=== PATIENT | female | born 1990 | race Caucasian/White ===

== ENCOUNTER 2016-09-28 15:30 | Day surgery (SDC) | payer BC, MEDICAID ==
[~2016-09-28] VITALS: Ht 157.5 cm; Wt 56.3 kg
[2016-09-28] VITALS (20 sets, daily range): BP systolic 89–108; BP diastolic 54–66; PULSE 62–88; RESP 17–18; Ht 157.5 cm; Wt 56.3 kg
[~2016-09-28 15:30] MED LIST: ACET500C5 PO; CALC600T11 PO; CEPH-443 PO; FERR-31 PO; IBUP-1542 PO; PRENAT PO; SEVOFLURANE 15 MIN ONE
[2016-09-28] MEDS ORDERED: LACTATED RINGER'S 1,000 ML IV SCH (16:00)
[2016-09-28 16:26] LABS: BASOPHILS % 0.3 % (0.0-2.0); EOSINOPHILS % 0.3 % (0.0-7.0); LYMPHOCYTES # 1.6 10^3/ul (0.8-2.9); LYMPHOCYTES % 26.1 % (15.0-51.0); MEAN CORPUSCULAR HEMOGLOBIN 31.9 pg (29.0-33.0); MEAN CORPUSCULAR HGB CONC 35.1 g/dl (32.0-37.0); MEAN CORPUSCULAR VOLUME 90.9 fl (82.0-101.0); MEAN PLATELET VOLUME 12.2 fl (7.4-10.4); MONOCYTE # 0.4 10^3/ul (0.3-0.9); MONOCYTES % 6.3 % (0.0-11.0); NEUTROPHILS % 66.7 % (39.0-77.0); PLATELET COUNT 148 10^3/UL (140-415); RED BLOOD COUNT 4.07 10^6/ul (4.20-5.40)
[2016-09-28] MEDS ORDERED: LIDOCAINE 2% (SDV) 5 ML INJ ONE (16:44)
[2016-09-28] MEDS ORDERED: MIDAZOLAM 1 MG/ML 2 ML INJ ONE (16:44)
[2016-09-28] MEDS ORDERED: PROPOFOL 20 ML ONE ×2 (16:44→17:16)
--- NOTE | 2016-09-28 16:54 | HP ---
Date/Time of Note Date/Time of Note DATE: 09/28/16 TIME: 16:51 Assessment/Plan VTE Prophylaxis VTE Prophylaxis Intervention: ambulation Assessment/Plan Assessment/Plan missed Ab: decreasing B HCG and NO pole x few weeks HPI/ROS Admit Date/Time Admit Date/Time 09/28/2016 Hx of Present Illness 26 y/o female with missed ROS vaginal spotting X 3 days denies paage of tissue Constitutional: improved, no complaints Eyes: no complaints ENT: no complaints Respiratory: no complaints Cardiovascular: no complaints Gastrointestinal: no complaints Genitourinary: bleeding, no complaints Musculoskeletal: no complaints Skin: no complaints Neurologic: no complaints Endocrine: no complaints Lymphatic: no complaints Psychological: nl mood/affect, no complaints Immunologic: no complaints PMH/Family/Social Past Medical History Medical History: no pertinent history Past Surgical History Past Surgical Hx: no surgical history Family History Significant Family History: no pertinent family hx Social History Alcohol Use: none Smoking Status: Never smoker Drug Use: none Exam/Review of Systems Exam Exam not in acute distress Constitutional: alert, oriented, well developed Psych: nl mood/affect, no complaints Head: atraumatic, normocephalic Eyes: EOMI, PERRL, nl conjunctiva, nl lids, nl sclera ENMT: nl external ears & nose, nl lips & teeth, nl nasal mucosa & septum Neck: non-tender, supple Respiratory: clear to auscultation, normal air movement Cardiovascular: nl pulses, regular rate and rhythm Gastrointestinal: nl liver, spleen, non-tender, soft Genitourinary - Female: other (6 weeks size ) Musculoskeletal: nl extremities to inspection Extremities: normal pulses 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
[2016-09-28] MEDS ORDERED: OXYTOCIN 10 UNIT INJ ONE (17:26)
[2016-09-28] MEDS ORDERED: FENTAnyl 50 MCG/ML VIAL ONE (17:30)
[2016-09-28] MEDS ORDERED: PHENYLephrine (100 MCG/ML) 5ML SYG ONE (17:32)
[2016-09-28] MEDS ORDERED: DEXAMETHASONE 4 MG/ML 1 ML INJ ONE (17:37)
[2016-09-28] MEDS ORDERED: METOCLOPRAMIDE 10 MG INJ ONE (17:37)
[2016-09-28] MEDS ORDERED: ONDANSETRON 4 MG INJ ONE (17:37)
--- NOTE | 2016-09-28 17:37 | OPR ---
Operative Report Planned Procedure Procedure date Sep 28, 2016 Procedure(s) dilatation of cervix and suction corsetage of the uterus Performed by: ROYAL BARKSDALE MD Anesthesiologist: SANTIAGO VAZQUEZ MD Pre-procedure diagnosis missed without fetus Anesthesia Type: general Procedure Description The patient was placed on the OR table in supine position. General anesthesia was induced. Patient was taken to lithotomy position. Perineal and vaginal area were prepped, draped for usual D and C procedure. Under satisfactory anesthesia, a weighted speculum was inserted into vagina. Anterior lip of the cervix was secured with an Allis clamp. Cervix was brought up to operative field, was progressively dilated to #8 Hegar. A #8 Vacurette was inserted into the uterine cavity. Uterine cavity was suctioned. Product of conception was removed, sent for pathology. The procedure was complemented by performing a gentle sharp curettage in uterine cavity. After making sure no product of conception is left inside the uterine cavity all of the instruments were removed from vaginal cavity. Patient was carefully returned to supine position and was transferred to postanesthesia recovery room in good condition. Post-Procedure Post-procedure diagnosis S/P D&C Findings: product of conception Specimen removed: Yes Specimen description product of conception Complications: None Pt Condition post procedure: stable Disposition: PACU Physician Certification I, the undersigned physician, hereby certify that I have discussed the procedure described in this consent form with this patient (or the patient's legal insurance claims representative), including: * The risk and benefits of the procedure; * Any adverse reactions that may reasonably be expected to occur; * Any alternative efficacious methods of treatment which may be medically viable ; * The potential problems that may occur during recuperation; * Potential for blood transfusion and associated risks/benefits; and * Any research or economic interest I may have regarding this treatment. I further certify that the patient/legally responsible person was encouraged to ask question and that all questions were answered. ROYAL BARKSDALE MD Sep 28, 2016 17:37
[2016-09-28] MEDS ORDERED: OXYCODONE/ACETAMINOPHEN (5/325) TAB PO PRN (18:00)
[2016-09-28] MEDS ORDERED: FENTAnyl 50 MCG/ML VIAL IV PRN (18:00)
[2016-09-28] MEDS ORDERED: ONDANSETRON 4 MG INJ IV PRN (18:00)
[2016-09-28] MEDS ORDERED: DIPHENHYDRAMINE 50 MG INJ IV PRN (18:00)
[2016-09-28] MEDS ORDERED: DOXYCYCLINE 100 MG TAB PO ONE (18:00)
[2016-09-28] MEDS ORDERED: HYDROmorphONE (0.2 MG/ML) 10ML SYG IV PRN (18:00)
== END 2016-09-28 19:45 | disposition home or self-care (01) ==
LOC: SDS 15:30
PROVIDERS: ATTEND Obstetrics & Gynecology
DX: O02.1 Missed abortion (principal)
CPT/HCPCS: 59820; 84703; 85025; 86900; 86901; 88305; J1100; J2250; J2370; J2405; J2590; J2765; J3010; Z7512; Z7610

== ENCOUNTER 2018-04-25 06:42 | Emergency (ER) | payer BC ==
[~2018-04-25] VITALS: Ht 157.5 cm; Wt 66.7 kg
[2018-04-25 06:45] VITALS: Ht 157.5 cm; Wt 66.7 kg
[2018-04-25] MEDS ORDERED: DOCU-144 PO (08:25)
[2018-04-25] MEDS ORDERED: NAPR-985 PO (08:25)
[2018-04-25] MEDS ORDERED: GLYCERIN (ADULT) SUPP PR ONE (08:30)
[2018-04-25 08:36] VITALS: PULSE 76; RESP 16
--- NOTE | 2018-04-25 12:20 | ERD ---
ER Documentation Chief Complaint Chief Complaint pt bib self with c/o abd pain starting this am, with back denies, bloated HPI 28-year-old female presenting with abdominal pain and bloating times 1 day. She states she woke up this morning and she felt her stomach was very bloated. She last had a last bowel movement yesterday. No vomiting. Has not taken medications for symptoms. Describes a cramping type pain to her abdomen. She never had this before. Normal urination. LNMP mid March. I denies medical problems. NKDA. Surgical history denies. Social history denies ROS All systems reviewed and are negative except as per history of present illness. Medications Home Meds Active Scripts Docusate Sodium* (Colace*) 100 Mg Capsule, 100 MG PO TID, #30 CAP Prov:JOZEF HAERN PA-C 04/25/18 Naproxen* (Naprosyn*) 500 Mg Tablet, 500 MG PO BID PRN for PAIN AND/OR INFLAMMATION, #30 TAB Prov:JOZEF HEARN PA-C 04/25/18 Allergies Allergies: Coded Allergies: No Known Allergy (Verified , 09/28/16) PMhx/Soc History of Surgery: No Anesthesia Reaction: No Hx Neurological Disorder: No Hx Respiratory Disorders: No Hx Cardiac Disorders: No Hx Psychiatric Problems: No Hx Miscellaneous Medical Probl: No Hx Alcohol Use: No Hx Substance Use: No Hx Tobacco Use: No Smoking Status: Never smoker FmHx Family History: No diabetes, No coronary disease, No other Physical Exam Vitals Vital Signs Date Temp Pulse Resp B/P (MAP) Pulse Ox O2 O2 Flow FiO2 Time Delivery Rate 04/25/18 76 16 96 Room Air 08:36 04/25/18 97.9 71 16 120/58 100 06:45 (78) Physical Exam GENERAL: The patient is well-appearing, well-nourished, in no acute distress CHEST: Clear to auscultation bilaterally. There are no rales, wheezes or rhonchi. HEART: Regular rate and rhythm. No murmurs, clicks, rubs or gallops. ABDOMEN:Soft, nontender and nondistended. Good bowel sounds. No rebound or guarding. No gross peritonitis. No gross organomegaly or masses. BACK: No CVA tenderness Result Diagram: 04/25/18 0710 04/25/18 0710 Results 24 hrs Laboratory Tests Test 04/25/18 07:10 04/25/18 07:21 White Blood Count 6.7 10^3/ul Red Blood Count 4.10 10^6/ul Hemoglobin 12.6 g/dl Hematocrit 38.4 % Mean Corpuscular Volume 93.7 fl Mean Corpuscular Hemoglobin 30.7 pg Mean Corpuscular Hemoglobin Concent 32.8 g/dl Red Cell Distribution Width 12.2 % Platelet Count 203 10^3/UL Mean Platelet Volume 12.0 fl Immature Granulocytes % 0.300 % Neutrophils % 65.6 % Lymphocytes % 26.2 % Monocytes % 6.8 % Eosinophils % 0.9 % Basophils % 0.2 % Nucleated Red Blood Cells % 0.0 /100WBC Immature Granulocytes # 0.020 10^3/ul Neutrophils # 4.4 10^3/ul Lymphocytes # 1.7 10^3/ul Monocytes # 0.5 10^3/ul Eosinophils # 0.1 10^3/ul Basophils # 0.0 10^3/ul Nucleated Red Blood Cells # 0.0 10^3/ul Urine Color STRAW Urine Clarity SLIGHTLY CLOUDY Urine pH 5.0 Urine Specific [place] 1.013 Urine Ketones NEGATIVE mg/dL Urine Nitrite NEGATIVE mg/dL Urine Bilirubin NEGATIVE mg/dL Urine Urobilinogen NEGATIVE mg/dL Urine Leukocyte Esterase TRACE Vasile/ul Urine Microscopic RBC 2 /HPF Urine Microscopic WBC 5 /HPF Urine Squamous Epithelial Cells FEW /HPF Urine Bacteria FEW /HPF Urine Hemoglobin 2+ mg/dL Urine Glucose NEGATIVE mg/dL Urine Total Protein NEGATIVE mg/dl Sodium Level 143 mmol/L Potassium Level 3.9 mmol/L Chloride Level 107 mmol/L Carbon Dioxide Level 29 mmol/L Anion Gap 7 Blood Urea Nitrogen 13 mg/dl Creatinine 0.69 mg/dl Est Glomerular Filtrat Rate mL/min > 60 mL/min Glucose Level 86 mg/dl Calcium Level 9.3 mg/dl Total Bilirubin 0.2 mg/dl Direct Bilirubin 0.00 mg/dl Indirect Bilirubin 0.2 mg/dl Aspartate Amino Transf (AST/SGOT) 28 IU/L Alanine Aminotransferase (ALT/SGPT) 13 IU/L Alkaline Phosphatase 110 IU/L Total Protein 7.0 g/dl Albumin 4.1 g/dl Globulin 2.90 g/dl Albumin/Globulin Ratio 1.41 Lipase 59 U/L POC Beta HCG, Qualitative NEGATIVE Current Medications Medications Dose Sig/Harinder Start Time Status Last (Trade) Ordered Route PRN Stop Time Admin Dose Reason Admin Glycerin 1 supp ONCE ONCE 04/25/18 DC 04/25/18 (Glycerin UT 08:30 04/25/18 08:35 (Adult)) 08:31 Procedures/MDM DIAGNOSTIC IMAGING REPORT Patient: MARIA D MEJIA : 1990 Age: 28 Sex: F MR #: [id number] DOS: 04/25/18 0700 Ordering MD: HOSEA HEARN PA-C Location: [facility] Room/Bed: PROCEDURE: CT abdomen and pelvis without contrast. CLINICAL INDICATION: Abdominal pain, back pain TECHNIQUE: CT scan of the abdomen and pelvis without contrast was performed on a multi-slice CT scanner. The patient was scanned without intravenous contrast. 3-D sagittal and coronal reformatted images were obtained from the axial source images. CTDI: 9.7 and DLP: 542.6 One or more of the following dose reduction techniques were used: Automated exposure control. Adjustment of the mA and/or kV according to patient's size. Use of iterative reconstruction technique. DICOM images are available. COMPARISON: None. FINDINGS: Incidental images through the lung bases reveal no evidence of focal basilar consolidation or pleural effusion. The liver, spleen, gallbladder, pancreas and adrenal glands are unremarkable for noncontrast study. The kidneys are bilaterally symmetrical without evidence of hydronephrosis. There is no evidence of obstructive uropathy. No significant retroperitoneal adenopathy is identified. The abdominal aorta is intact. The stomach is grossly unremarkable. There is no evidence of small bowel obstruction. A normal appendix is identified. There is extensive stool seen in the ascending and transverse colon. There is stool and bowel gas seen in the descending and sigmoid colon. There is no evidence of diverticulitis.. There is small to moderate free fluid in the cul-de-sac. There is a possible 2.3 cm cyst in the left ovary. Evaluation of the osseous structures reveals no acute change. IMPRESSION: 1. There is small to moderate free fluid in the cul-de-sac with a possible 2.3 cm cyst in the left ovary. Pelvic ultrasound could be performed for further evaluation. 2. There is extensive stool seen in the ascending and transverse colon with stool and bowel gas in the descending and sigmoid colon. There is no evidence of diverticulitis or bowel obstruction. 3. No evidence of appendicitis or obstructive uropathy. MDM: 28-year-old female presenting with abdominal pain. Patient does have a cyst noted on her ovary however she has not an excruciating pain in his pain is located generalized over the abdomen and is nonfocal on exam. I do not feel ultrasound is indicated. Patient likely has pain secondary to her constipation I would treat with supportive medications. Patient is discharged stricter precautions and told to follow-up with primary care. Patient is told symptoms change or worsen to return immediately to the ER. All questions answered at discharge Departure Diagnosis: Primary Impression: Constipation Additional Impression: Ovarian cyst Condition: Stable Patient Instructions: Constipation (Adult), Ovarian Cyst Additional Instructions: FOLLOW UP WITH YOUR PRIMARY CARE PHYSICIAN TOMORROW.Return to this facility if you are not improving as expected. JOZEF HEARN PA-C Apr 25, 2018 12:20
== END 2018-04-25 08:36 | disposition home or self-care (01) ==
LOC: FTE 06:42
DX: K59.00 Constipation, unspecified (principal); N83.202 Unspecified ovarian cyst, left side
CPT/HCPCS: 74176; 80053; 81001; 81025; 83690; 85025; Z7610; 36415

== ENCOUNTER → 2018-06-24 | Outpatient (CLI) | payer BC ==
[~2018-06-24] MED LIST changes: -ACET500C5 PO; -CALC600T11 PO; -CEPH-443 PO; +DOCU-144 PO; -FERR-31 PO; -IBUP-1542 PO; +NAPR-985 PO; -PRENAT PO; -SEVOFLURANE 15 MIN ONE
--- NOTE | 2018-06-25 22:57 | SP ---
DATE OF PROCEDURE: 06/24/2018 INDICATION: A 28-year-old lady with history of passing out episodes, last one in 04/15. According t o technologist's note is 6 weeks. DESCRIPTION OF PROCEDURE: Routine outpatient study was done digitally. [id number] and scalp-to- ear montages were recorded and reviewed. All impedances were measured and recorded. Cap electrodes were placed in accordance to International 10-20 system of electrode placement. FINDINGS: Symmetrically distributed background activity of low to medium amplitude ranging in freque ncy between 9-11 cycles per second was seen in the awake states. Photic stimulation produces normal driving. Hyperventilation elicits no epileptiform activity. When patient gets drowsy and falls asle ep, background gets slightly less organized. Occasional vertex waves were seen. No epileptiform tra nsients were seen. No signs of ongoing electrographic seizures or lateralized slowing. IMPRESSION: Normal study. Correlate clinically. Dictated By: ERIK CUNNINGHAM/KELSEA Conf#: [id number] DID#: [id number]
== END | disposition home or self-care (01) ==
LOC: EEG 09:45
PROVIDERS: ATTEND Family Medicine Adult Medicine
DX: G40.909 Epilepsy, unspecified, not intractable, without status epilepticus (principal)
CPT/HCPCS: 95819